=== PATIENT | male | born 1960 | race Caucasian/White ===

== ENCOUNTER 2017-08-22 20:11 | Emergency (ER) | payer OTHER ==
[~2017-08-22] VITALS: Ht 177.8 cm; Wt 101.4 kg
[2017-08-22] MEDS ORDERED: QUINAPRIL10 MG PO (20:26)
[2017-08-22] MEDS ORDERED: METFORMIN HCL1000 MG PO (20:26)
[2017-08-22] MEDS ORDERED: JARDIANCE10 MG PO (20:27)
[2017-08-22] MEDS ORDERED: JANUVIA25 MG PO (20:28)
[2017-08-22] MEDS ORDERED: CRESTOR20 MG PO (20:28)
[2017-08-22] MEDS ORDERED: ZETIA10 MG PO (20:29)
[2017-08-22] MEDS ORDERED: COREG CR80 MG PO (20:29)
[2017-08-22] MEDS ORDERED: ASPIRIN325 MG PO (20:30)
[2017-08-22] MEDS ORDERED: HYDROCHLOROT25 MG PO (20:30)
[2017-08-22] MEDS ORDERED: AUGMENTIN875TAB PO (20:55)
[2017-08-22 21:10] VITALS: BP 137/86
== END 2017-08-22 21:10 | disposition home or self-care (01) | DRG 603 ==
LOC: ED 20:11
DX: L03.116 Cellulitis of left lower limb (principal); M79.672 Pain in left foot

== ENCOUNTER 2018-02-19 07:37 | Emergency (ER) | payer BC ==
[~2018-02-19] VITALS: Ht 177.8 cm; Wt 97.7 kg
[~2018-02-19 07:37] MED LIST: ASPIRIN325 MG PO; AUGMENTIN875TAB PO; COREG CR80 MG PO; CRESTOR20 MG PO; HYDROCHLOROT25 MG PO; JANUVIA25 MG PO; JARDIANCE10 MG PO; METFORMIN HCL1000 MG PO; QUINAPRIL10 MG PO; ZETIA10 MG PO
[2018-02-19] MEDS ORDERED: ISOSORB MONO30 MG PO (08:12)
[2018-02-19] MEDS ORDERED: SOMA350 MG PO (08:13)
[2018-02-19] MEDS ORDERED: NITROSTAT0.4 MG SL (08:14)
[2018-02-19 08:23] LABS: IMMATURE GRANULOCYTES 0.3 % (0.0-5.0); MEAN CELL VOLUME 89.4 fL CALC (80.0-100.0); MEAN CORPUSCULAR HGB 30.4 pG CALC (26.0-32.0); NEUT# 3.37 thou/uL (1.82-7.42); RED BLOOD COUNT 5.59 mill/uL (4.70-6.10); RED CELL DISTRI WIDTH 12.7 % (11.5-15.5)
[2018-02-19 08:31] LABS: ANION GAP 14 (6-22 (CALC)); BUN 14 mg/dL (9-20); BUN/CREATININE RATIO 20 (12-20 (CALC)); CARBON DIOXIDE 23 mmol/l (22-30); CHLORIDE 109 mmol/l (95-108); CREATININE 0.7 mg/dL (0.7-1.3); GFR > 60 ML/MIN (>=60 (CALC)); GFR FOR AFR.AMER. > 60 ML/MIN (>=60 (CALC)); POTASSIUM 4.3 mmol/l (3.5-5.1); SODIUM 141 mmol/l (137-146)
[2018-02-19 09:17] VITALS: BP 151/88
[2018-02-19 09:19] LABS: ACT PARTIAL THROMBO TIME 27.1 SECONDS (20.0-32.5); INTERNATIONAL NORMALIZED RATIO 0.9 RATIO (0.7-1.3); PROTHROMBIN TIME 9.5 SECONDS (9.0-12.5)
== END 2018-02-19 09:23 | disposition short-term general hospital (02) | DRG 282 ==
LOC: ED 07:37
PROVIDERS: Family Medicine
DX: I21.3 ST elevation (STEMI) myocardial infarction of unspecified site (principal); I10 Essential (primary) hypertension; E11.9 Type 2 diabetes mellitus without complications; E78.00 Pure hypercholesterolemia, unspecified; Z95.1 Presence of aortocoronary bypass graft

== ENCOUNTER 2018-04-19 07:57 | Outpatient (RCR) | payer BC ==
[~2018-04-19 07:57] MED LIST changes: -ASPIRIN325 MG PO; +BRILINTA90 MG PO; +EC-81 ASPIRIN81 MG PO; +FISH OIL1000 MG PO; +ISOSORB MONO30 MG PO; +JANUVIA50 MG PO; +METFORMIN500 MG PO; +NITROSTAT0.4 MG SL; +SOMA350 MG PO
[2018-05-08] MEDS ORDERED: MULTI 50+ PO (09:36)
[2018-05-08] MEDS ORDERED: HYDROCHLOROT25 MG PO (09:37)
[2018-05-08] MEDS ORDERED: METOLAZONE2.5 MG PO (09:37)
== END 2018-04-19 09:05 | disposition home or self-care (01) | DRG 303 ==
LOC: CR 07:57
PROVIDERS: ATTEND Internal Medicine
DX: I25.119 Atherosclerotic heart disease of native coronary artery with unspecified angina pectoris (principal); Z95.818 Presence of other cardiac implants and grafts

== ENCOUNTER 2018-11-17 01:26 | Observation (INO) | payer BC ==
[~2018-11-17] VITALS: Ht 177.8 cm; Wt 93.0 kg
[~2018-11-17 01:26] MED LIST changes: +METOLAZONE2.5 MG PO; +MULTI 50+ PO
--- NOTE | 2018-11-17 01:28 | NUR ---
PT WHEELED STRAIGHT BACK TO ROOM 12 FOR TRIAGE, EKG DONE AND DR GARCIA IN ROOM.
[2018-11-17] MEDS ORDERED: LOVAZA1 CAP PO (01:58)
[2018-11-17] MEDS ORDERED: ISOSORB MONO30 MG PO (01:59)
[2018-11-17] MEDS ORDERED: FUROSEMIDE20 MG PO (01:59)
[2018-11-17 02:03] LABS: HEMATOCRIT 48.5 % (39.0-50.0); IMMATURE GRANULOCYTES 0.4 % (0.0-5.0); MEAN CELL VOLUME 86.5 fL CALC (80.0-100.0); MEAN CORPUSCULAR HGB 28.5 pG CALC (26.0-32.0); NEUT# 2.77 thou/uL (1.82-7.42); RED BLOOD COUNT 5.61 mill/uL (4.70-6.10); RED CELL DISTRI WIDTH 13.2 % (11.5-15.5)
--- NOTE | 2018-11-17 02:10 | NUR ---
B/P DROPPED TO 63/43 REMOVED NTG PASTE AND WIPED OFF CHEST. NS BOLUS INFUSING PER ORDER. PT STATES HE ONLY HAS 0.25/10 PAIN TO CHEST NOW.
[2018-11-17 02:14] LABS: ACT PARTIAL THROMBO TIME 25.5 SECONDS (20.0-32.5); INTERNATIONAL NORMALIZED RATIO 0.9 RATIO (0.7-1.3); PROTHROMBIN TIME 9.4 SECONDS (9.0-12.5)
[2018-11-17 02:19] LABS: ALBUMIN 4.7 g/dL (3.2-5.0); ALKALINE PHOSPHATASE 103 u/l (38-126); ANION GAP 18 (6-22 (CALC)); BILIRUBIN, TOTAL 1.4 mg/dL (0.0-1.4); BUN 18 mg/dL (9-20); BUN/CREATININE RATIO 23 (12-20 (CALC)); CARBON DIOXIDE 25 mmol/l (22-30); CHLORIDE 101 mmol/l (95-108); CREATININE 0.8 mg/dL (0.7-1.3); GFR > 60 ML/MIN (>=60 (CALC)); GFR FOR AFR.AMER. > 60 ML/MIN (>=60 (CALC)); POTASSIUM 4.1 mmol/l (3.5-5.1); SGOT/AST 36 u/l (17-59); SODIUM 140 mmol/l (137-146); TOTAL PROTEIN 7.6 g/dL (6.3-8.2)
--- NOTE | 2018-11-17 02:26 | NUR ---
B/P UP TO 105/60.
[2018-11-17 02:31] LABS: MYOGLOBIN 72 ng/mL (0 - 121)
--- NOTE | 2018-11-17 03:13 | NUR ---
GI COCKTAIL GIVEN FOR RETURN OF BURNING PAIN IN MID CHEST AREA. TOPONIN AND MYOGLOBIN NEGATIVE. CALL HOYT IN REACH. B/P STABLE
--- NOTE | 2018-11-17 04:00 | NUR ---
DR GARCIA SPOKE WITH DR MOISE AND ACCEPTED FOR ADMISSION.
--- NOTE | 2018-11-17 04:17 | NUR ---
Admission Note Report Given to: SKYLA WOMACK Transported by: X Wheelchair Stretcher Transported with: X Nurse Transporter X Patent IV X O2 X Fox Farmer
--- NOTE | 2018-11-17 04:22 | NUR ---
PT RECEIVED FROM [facility] ACCOMPANIED BY NURSE. GAIT IS STEADY. ALERT AND ORIENTED X4. TELE SR. VSS. B/P 115/79. O2 SAT 97% ON 2L N/C. LUNGS CLEAR BILAT. ABD SOFT AND NONDISTENDED WITH BOWEL SOUNDS PRESENT. PT DOES HAVE A +1 LOWER EXT EDEMA NOTED. PEDAL PULSES PALPATED BILAT. HEPLOCK PATENT IN RT A.C. NO REDNESS OR TENDERNESS AT SITE. PT ORIENTED TO ROOM AND CALL HOYT. PT INFORMED OF PLAN OF CARE. TELE SR. OFFERS NO COMPLAINTS AT THIS TIME. FREQUENT ROUNDS MADE.CALL HOYT WITHIN REACH.
[2018-11-17 04:40] VITALS: BP 115/79
[2018-11-17 05:41] LABS: CHOLESTEROL HDL RATIO 3.3 (<4.4 (CALC))
--- NOTE | 2018-11-17 05:55 | NUR ---
RESTING IN BED WITH EYES CLOSED. RESP EVEN AND UNLABORED. TELE INTACT. NO DISTRESS NOTED. FREQUENT ROUNDS MADE. CALL HOYT WITHIN REACH.
[2018-11-17 08:00] VITALS: BP 122/72
--- NOTE | 2018-11-17 08:00 | NUR ---
ASSESSMENT IS COMPLETED: IV SITE IS FREE FROM REDNESS OR EDEMA. HR IS REG,PULSES ARE STRONG X4, ABD IS SOFT WITH ACTIVE BS. BREATH SOUNDS ARE CLEAR,BILATERALLY, NO C/O CP OR SOB. TELE MONITOR IN PLACE. CONTINUE TO OSBERVE AND MONITOR.
[2018-11-17 11:13] VITALS: BP 129/83
--- NOTE | 2018-11-17 12:00 | NUR ---
PT HAS BEEN RELAXING IN BED WITH NO DISTRESS NOTED. IV SITE IS FREE FROM REDNESS OR EDEMA.
--- NOTE | 2018-11-17 13:00 | NUR ---
PT RECEIVED DISCHARGE INSTRUCTIONS . VERBALIZED UNDERSTANDING. IV SITE DISCONTINUED CATHETER INTACT NO REDNESS OR EDEMA. Discharge instructions given. Patient verbalizes understanding of same. Discharged in stable condition via Wheelchair to Home with family. All belongings sent with pt.
== END 2018-11-17 13:23 | disposition home or self-care (01) | DRG 303 ==
LOC: ED 01:26 → ED-I 02:40 → ED 04:05 → MS2 04:06
PROVIDERS: Family Medicine; ADMIT Internal Medicine; ATTEND Internal Medicine
DX: I25.119 Atherosclerotic heart disease of native coronary artery with unspecified angina pectoris (principal); I10 Essential (primary) hypertension; E11.9 Type 2 diabetes mellitus without complications; E78.5 Hyperlipidemia, unspecified; Z95.1 Presence of aortocoronary bypass graft; Z95.5 Presence of coronary angioplasty implant and graft; Z79.84 Long term (current) use of oral hypoglycemic drugs
CPT/HCPCS: G0378

== ENCOUNTER 2019-05-08 18:15 | Observation (INO) | payer BC ==
[~2019-05-08] VITALS: Ht 175.3 cm; Wt 90.7 kg
[~2019-05-08 18:15] MED LIST changes: +FUROSEMIDE20 MG PO; +LOVAZA1 CAP PO
--- NOTE | 2019-05-08 18:26 | NUR ---
PT ASSESSED. PT REPORTS CURRENTLY 4/10 CHEST PAIN. SUBSSTERNAL PAIN RADIATING LEFT ARM FOR THE LAST 25 MINUTES. PT REPORTS VERY ANXIOUS AND FEELING SHORT OF BREATH. HAS HAD OPEN HEART SURGERY 3 YEARS AGO. SKIN PINK, WARM AND DRY. PT AO X 3.
[2019-05-08 18:42] LABS: HEMATOCRIT 47.6 % (39.0-50.0); HEMOGLOBIN 16.1 g/dl (14.0-18.0); IMMATURE GRANULOCYTES 0.4 % (0.0-5.0); MEAN CELL VOLUME 86.9 fL CALC (80.0-100.0); MEAN CORPUSCULAR HGB 29.4 pG CALC (26.0-32.0); MEAN CORPUSCULAR HGB CONC 33.8 g/dL CAL (32.0-36.0); NEUT# 4.56 thou/uL (1.82-7.42); RED BLOOD COUNT 5.48 mill/uL (4.70-6.10); RED CELL DISTRI WIDTH 12.9 % (11.5-15.5)
--- NOTE | 2019-05-08 18:52 | NUR ---
PT MEDICATED FOR COMPLAINTS OF CHEST PAIN
[2019-05-08 18:58] LABS: ALKALINE PHOSPHATASE 87 u/l (38-126); ANION GAP 15 (6-22 (CALC)); BILIRUBIN, TOTAL 1.1 mg/dL (0.0-1.4); BUN 23 mg/dL (9-20); BUN/CREATININE RATIO 31 (12-20 (CALC)); CARBON DIOXIDE 24 mmol/l (22-30); CHLORIDE 101 mmol/l (95-108); CREATININE 0.7 mg/dL (0.7-1.3); GFR > 60 ML/MIN (>=60 (CALC)); GFR FOR AFR.AMER. > 60 ML/MIN (>=60 (CALC)); POTASSIUM 3.8 mmol/l (3.5-5.1); SGOT/AST 21 u/l (17-59); SODIUM 136 mmol/l (137-146); TOTAL PROTEIN 6.4 g/dL (6.3-8.2)
[2019-05-08 19:09] LABS: MYOGLOBIN 78 ng/mL (0 - 121)
--- NOTE | 2019-05-08 19:52 | NUR ---
PT REPORTS CHEST PAIN FREE AT THIS TIME. COMPLAINS OF SMALL ACHE IN LEFT JAW AND SHOULDER. RESTING COMFORTABLY ON STRETCHER. AT BEDSIDE.
--- NOTE | 2019-05-08 20:50 | NUR ---
ICU UNABLE TO TAKE REPORT AT THIS TIME
[2019-05-08] MEDS ORDERED: TRULICITY0.75 MG/0. IM (21:01)
--- NOTE | 2019-05-08 21:07 | NUR ---
REPORT CALLED TO EDNA CRUM.
--- NOTE | 2019-05-08 21:15 | NUR ---
PT TRANSPORTED VIA STRETCHER TO ICU. MONITOR IN PLACE
[2019-05-08 21:20] VITALS: BP 133/77
--- NOTE | 2019-05-08 21:20 | NUR ---
RECEIVED FROM ER VIA STRETCHER INTO ICU BED 8. PATIENT ALERT AND ORIENTED. PAINFREE ON ARRIVAL TO UNIT. PATIENT AMBULATES WITH STABLE STANCE AND GAIT FROM STRETCHER TO BED. ORIENTED TO SURROUNDINGS. RESP NON-LABORED. LUNGS CLEAR THROUGHOUT. NO PERIPHERAL EDEMA, PULSES PALPABLE. SALINE LOCK INTACT IN RH, SITE BENIGN. PLACED ON ELECTROLESS PLATER SHOWING SR. DISCUSSED PLAN OF CARE. DENIES NEEDS AT THIS TIME. CALL HOYT IN REACH.
[2019-05-08] MEDS ORDERED: CARVEDILOL25 MG PO (21:55)
[2019-05-08] MEDS ORDERED: QUINAPRIL20 MG PO (22:00)
--- NOTE | 2019-05-08 22:00 | NUR ---
SPOKE ON PHONE WITH PATIENT GABRIELA AND UPDATED MED REC. PATIENT PROVIDED WITH SANDWICH, FRUIT AND PUDDING AND DIET SODA.
[2019-05-08 22:15] VITALS: BP 127/74
[2019-05-08 23:12] LABS: URINE BILIRUBIN - DIPSTICK NEGATIVE (NEGATIVE); URINE BLOOD DIPSTICK NEGATIVE (NEGATIVE); URINE COLOR YELLOW; URINE GLUCOSE - DIPSTICK >=1000 mg/dL (NEGATIVE); URINE KETONE NEGATIVE (NEGATIVE); URINE LEUK ESTERASE NEGATIVE (NEGATIVE); URINE NITRITE - DIPSTICK NEGATIVE (Negative); URINE PH 5.5 (4.5-8.0); URINE PROTEIN - DIPSTICK NEGATIVE (NEG-TRACE); URINE UROBILINOGEN - DIPSTICK 0.2 E.U./dL (0.2)
[2019-05-09] VITALS (7 sets, daily range): BP systolic 101–141; BP diastolic 60–87
--- NOTE | 2019-05-09 00:15 | NUR ---
PRIVATE [employer]ORTGAGE BANKER SAFE HERE TO DRAW BLOOD FOR TROPONIN LEVEL. PATIENT RESTING WITHOUT COMPLAINTS. VSS. MONITOR SR.
--- NOTE | 2019-05-09 04:00 | NUR ---
RESTING WITH EYES CLOSED. RESP NON-LABORED. SR ON MONITOR.
--- NOTE | 2019-05-09 06:00 | NUR ---
RESTING IN BED WITHOUT COMPLAINTS. VSS. SR ON MONITOR. TEOFILO CASTELLANOS FLUSHED AND PATENT.
--- NOTE | 2019-05-09 07:00 | NUR ---
PT RESTINGIN BED AWAKE. PT IS ALERT AND ORIENTED X3. SHIFT ASSESSMENT COMPLETED AT THIS TIME. IV PATENT X1. CALL LIGHT IN REACH. WILL CONTINUE TO MONITOR.
--- NOTE | 2019-05-09 07:50 | NUR ---
PT SET UP FOR AM MEAL
--- NOTE | 2019-05-09 07:55 | NUR ---
DR FRAZIER AT BEDSIDE AT THIS TIME
--- NOTE | 2019-05-09 08:12 | NUR ---
LILLIAN ALFORD APRN NOTIFIED OF CONSULT. DR FRAZIER SPOKE WITH DR HILTON.
--- NOTE | 2019-05-09 10:15 | NUR ---
PT REPORTS THAT HE TOOK BRILINTA FROM HOME BROUGHT IN MEDICATION. PT DOES NOT WANT TO SEND MEDICATION TO PHARMACY DUE TO HE MAY BE DC'D TODAY.EXPLAINED TO PATIENT THAT IF HE STAYS THE MEDICATION WILL NEED TO BE VERIFIED BY PHARACY. PT VERBALIZED UNDERSTANDIN. PT ALSO STATES THAT HE HAS HAD TWO EPISODES OF CHEST TIGHTNESS SINCE 0800 NOT LIKE LAST NIGHT PER PATIENT. TERESA ALFORD APRN NOTIFIED AND DR FRAZIER NOTIFIED WELL.
--- NOTE | 2019-05-09 10:29 | NUR ---
TERESA ALFORD AT BEDSIDE AT THIS TIME
--- NOTE | 2019-05-09 11:14 | NUR ---
RT AT BEDSIDE FOR EKG
--- NOTE | 2019-05-09 11:40 | NUR ---
PT SET UP FOR NOON MEAL
--- NOTE | 2019-05-09 12:12 | NUR ---
LAB AT BEDSIDE AT THIS TIME.
[2019-05-09] MEDS ORDERED: RANOLAZINE ER500 MG PO (12:48)
--- NOTE | 2019-05-09 13:30 | NUR ---
PT TRANSFERRED TO MED SURG ROOM 290 VIA WHEELCHAIR. PT TOLERATED.
--- NOTE | 2019-05-09 13:40 | NUR ---
PATIENT TRANSFERRED FROM ICU, ADRIÁNRWADE A/OX4, NO C/O PAIN, NO CHEST PAIN, PATIENT ABLE TO AMBULATE TO RESTROOM, PATIENT SITTING UP IN CHAIR, ORIENT TO ROOM, STAFF, PLAN OF CARE, CALL LIGHTIN WITHIN REACH
--- NOTE | 2019-05-09 16:33 | NUR ---
PATIENT A/OX4, NO C/O PAIN, NO C/O CHEST PAIN, NO S/S RESP DISTRESS, PATIENT RHYTHM IN NORMAL SINUS RHYTHM, CALL LIGHT WITHIN REACH
--- NOTE | 2019-05-09 19:54 | NUR ---
PT SITTING IN RECLINER AT BEDSIDE, NO SIGNS OF DISTRESS NOTED, RESP EVEN AND UNLABORED. PT ALERT AND ORIENTED X3, AT BEDSIDE, DISCUSSED POC. DENIES CP AT THIS TIME STATES HE DID HAVE CP EARLIER BUT IT WAS NON RADIATING AND LASTED FOR JUST A MOMENT. ASSESSMENT COMPLETED, MEDICATED PER MAR. CALL LIGHT IN REACH,CONTINUE TO MONITOR.
--- NOTE | 2019-05-09 20:39 | NUR ---
PT MEDICATED WITH 2 UNTIS OF NOVOLOG FOR ACCUCHECK 242. CALL LIGHT IN REACH,CONTINUE TO MONITOR.
--- NOTE | 2019-05-10 | NUR ---
PT RESTING IN BED WITH EYES CLOSED, NO SIGNS OF DISTRESS NOTED, RESP EVEN AND UNLABORED. CALL LIGHT IN REACH,CONTINUE TO MONITOR.
[2019-05-10 03:28] VITALS: BP 91/57
--- NOTE | 2019-05-10 03:30 | NUR ---
VITALS OBTAINED BY STAMPER BLOCKER, PT VOICES NO NEEDS OR COMPLAINTS, CALL LIGHT IN REACH,CONTINUE TO MONITOR.
--- NOTE | 2019-05-10 06:00 | NUR ---
PT RESTING IN BED WITH EYES CLOSED, NO SIGNS OF DISTRESS NOTED, RESP EVEN AND UNLABORED, CALL LIGHT IN REACH,CONTINUE TO MONITOR.
--- NOTE | 2019-05-10 07:45 | NUR ---
PATIENT A/OX4, NO C/O PAIN, NO S/S RESP DISTRESS, PATIENT ON ROOM AIR, PATIENT SITTING UP IN CHAIR, PATIENT HEART RHYTHM NORMAL SINUS, WILL CONTINUE TO MONITOR PATIENT, CALL LIGHT WITHIN REACH
[2019-05-10 08:00] VITALS: BP 123/84
[2019-05-10 10:55] VITALS: BP 114/85
--- NOTE | 2019-05-10 11:10 | NUR ---
PATIENT A/OX4, PATIENT HAS NO C/O PAIN NO CHEST PAIN, PATIENT NO S/S RESP DISTRESS, PATIENT ON ROOM, PATIENT DISCHARGED TO HOME SELF, EDUCATED THE PATIENT DISCHARGED INSTRUCTIONS PATIENT UNDERSTOOD TEACHING, PATIENT GIVEN HANDOUTS ABOUT DISCHARGED INSTRUCTIONS, REMOVED PATIENT IV, STAFF ASSISTED PATIENT OFF FLOOR VIA WHEELCHAIR
== END 2019-05-10 11:12 | disposition home or self-care (01) | DRG 303 ==
LOC: ED 18:15 → ED-I 19:32 → ED 19:51 → ICU 19:52 → ED-I 19:52 → ICU 20:14 → MS2 05-09 13:30
PROVIDERS: Emergency Medicine; ADMIT Internal Medicine; ATTEND Internal Medicine
DX: I25.118 Atherosclerotic heart disease of native coronary artery with other forms of angina pectoris (principal); I10 Essential (primary) hypertension; E11.9 Type 2 diabetes mellitus without complications; E78.5 Hyperlipidemia, unspecified; I25.2 Old myocardial infarction; Z95.1 Presence of aortocoronary bypass graft; Z95.5 Presence of coronary angioplasty implant and graft; Z79.84 Long term (current) use of oral hypoglycemic drugs; Z79.02 Long term (current) use of antithrombotics/antiplatelets; Z79.82 Long term (current) use of aspirin; Z82.49 Family history of ischemic heart disease and other diseases of the circulatory system
CPT/HCPCS: G0378; J1650

== ENCOUNTER 2019-06-10 | Emergency (ER) | payer BC ==
[~2019-06-10] MED LIST changes: +CARVEDILOL25 MG PO; +QUINAPRIL20 MG PO; +RANOLAZINE ER500 MG PO; +TRULICITY0.75 MG/0. IM
[2019-06-10 22:22] LABS: HEMATOCRIT 47.8 % (39.0-50.0); IMMATURE GRANULOCYTES 0.3 % (0.0-5.0); MEAN CELL VOLUME 87.5 fL CALC (80.0-100.0); MEAN CORPUSCULAR HGB 29.3 pG CALC (26.0-32.0); MEAN CORPUSCULAR HGB CONC 33.5 g/dL CAL (32.0-36.0); NEUT# 4.35 thou/uL (1.82-7.42); RED BLOOD COUNT 5.46 mill/uL (4.70-6.10); RED CELL DISTRI WIDTH 13.2 % (11.5-15.5)
[2019-06-10 22:23] LABS: GFR > 60 ML/MIN (>=60 (CALC)); GFR FOR AFR.AMER. > 60 ML/MIN (>=60 (CALC))
[2019-06-10] MEDS ORDERED: EZETIMIBE10 MG PO (22:26)
[2019-06-10] MEDS ORDERED: VASCEPA1 GM PO (22:27)
[2019-06-10] MEDS ORDERED: VITAMIN D35000 UNIT PO (22:28)
[2019-06-10 22:38] LABS: ALBUMIN 4.3 g/dL (3.2-5.0); ALKALINE PHOSPHATASE 101 u/l (38-126); AMYLASE 96 u/l (30-110); ANION GAP 13 (6-22 (CALC)); BILIRUBIN, TOTAL 1.4 mg/dL (0.0-1.4); BUN 23 mg/dL (9-20); BUN/CREATININE RATIO 24 (12-20 (CALC)); CARBON DIOXIDE 26 mmol/l (22-30); CHLORIDE 101 mmol/l (95-108); GFR > 60 ML/MIN (>=60 (CALC)); GFR FOR AFR.AMER. > 60 ML/MIN (>=60 (CALC)); LIPASE 399 u/l (23-300); SODIUM 136 mmol/l (137-146); TOTAL PROTEIN 6.9 g/dL (6.3-8.2)
[2019-06-10 22:40] LABS: INTERNATIONAL NORMALIZED RATIO 0.9 RATIO (0.7-1.3); PROTHROMBIN TIME 9.5 SECONDS (9.0-12.5)
[2019-06-10 22:42] LABS: SGOT/AST 42 u/l (17-59)
== END 2019-06-11 00:36 | disposition short-term general hospital (02) | DRG 303 ==
DX: I25.110 Atherosclerotic heart disease of native coronary artery with unstable angina pectoris (principal); E11.9 Type 2 diabetes mellitus without complications; I10 Essential (primary) hypertension; Z95.1 Presence of aortocoronary bypass graft; Z95.5 Presence of coronary angioplasty implant and graft; Z79.84 Long term (current) use of oral hypoglycemic drugs
CPT/HCPCS: Q9967

== ENCOUNTER 2019-11-26 11:14 | Emergency (ER) | payer BC ==
[~2019-11-26] VITALS: Ht 175.3 cm; Wt 75.0 kg
[~2019-11-26 11:14] MED LIST changes: +EZETIMIBE10 MG PO; +VASCEPA1 GM PO; +VITAMIN D35000 UNIT PO
[2019-11-26 12:39] LABS: HEMATOCRIT 47.9 % (39.0-50.0); HEMOGLOBIN 15.8 g/dl (14.0-18.0); IMMATURE GRANULOCYTES 0.2 % (0.0-5.0); MEAN CELL VOLUME 89.7 fL CALC (80.0-100.0); MEAN CORPUSCULAR HGB 29.6 pG CALC (26.0-32.0); NEUT# 3.08 thou/uL (1.82-7.42); RED BLOOD COUNT 5.34 mill/uL (4.70-6.10); RED CELL DISTRI WIDTH 12.5 % (11.5-15.5)
[2019-11-26 12:53] LABS: ALBUMIN 3.9 g/dL (3.2-5.0); ALKALINE PHOSPHATASE 71 u/l (38-126); ANION GAP 12 (6-22 (CALC)); BILIRUBIN, TOTAL 1.4 mg/dL (0.0-1.4); BUN 17 mg/dL (9-20); BUN/CREATININE RATIO 21 (12-20 (CALC)); CARBON DIOXIDE 25 mmol/l (22-30); CHLORIDE 103 mmol/l (95-108); CREATININE 0.8 mg/dL (0.7-1.3); GFR > 60 ML/MIN (>=60 (CALC)); GFR FOR AFR.AMER. > 60 ML/MIN (>=60 (CALC)); POTASSIUM 4.3 mmol/l (3.5-5.1); SGOT/AST 42 u/l (17-59); SODIUM 136 mmol/l (137-146); TOTAL PROTEIN 6.5 g/dL (6.3-8.2)
[2019-11-26] MEDS ORDERED: VITAMIN C500 MG PO (15:50)
[2019-11-26] MEDS ORDERED: CYANOCOBALAM IM (15:52)
[2019-11-26 17:27] VITALS: BP 126/86
== END 2019-11-26 17:20 | DRG 552 ==
LOC: ED 11:14
PROVIDERS: Family Medicine
DX: S22.080A Wedge compression fracture of T11-T12 vertebra, initial encounter for closed fracture (principal); R20.2 Paresthesia of skin; R15.2 Fecal urgency; R32 Unspecified urinary incontinence; I10 Essential (primary) hypertension; E11.9 Type 2 diabetes mellitus without complications; W01.0XXA Fall on same level from slipping, tripping and stumbling without subsequent striking against object, initial encounter; Y92.009 Unspecified place in unspecified non-institutional (private) residence as the place of occurrence of the external cause; Z95.1 Presence of aortocoronary bypass graft; Z98.1 Arthrodesis status; Z95.5 Presence of coronary angioplasty implant and graft; Z79.84 Long term (current) use of oral hypoglycemic drugs
CPT/HCPCS: J2060

== ENCOUNTER 2020-04-24 10:32 | Observation (INO) | payer BC ==
[~2020-04-24] VITALS: Ht 175.3 cm; Wt 91.6 kg
[~2020-04-24 10:32] MED LIST changes: +CYANOCOBALAM IM; +VITAMIN C500 MG PO
[2020-04-24 11:18] LABS: HEMATOCRIT 49.4 % (39.0-50.0); IMMATURE GRANULOCYTES 0.3 % (0.0-5.0); MEAN CELL VOLUME 91.3 fL CALC (80.0-100.0); MEAN CORPUSCULAR HGB 29.6 pG CALC (26.0-32.0); MEAN CORPUSCULAR HGB CONC 32.4 g/dL CAL (32.0-36.0); NEUT# 3.83 thou/uL (1.82-7.42); RED BLOOD COUNT 5.41 mill/uL (4.70-6.10)
[2020-04-24 11:35] LABS: ALBUMIN 4.4 g/dL (3.2-5.0); ALKALINE PHOSPHATASE 80 u/l (38-126); ANION GAP 14 (6-22 (CALC)); BUN 16 mg/dL (9-20); BUN/CREATININE RATIO 19 (12-20 (CALC)); CARBON DIOXIDE 27 mmol/l (22-30); CHLORIDE 101 mmol/l (95-108); CREATININE 0.9 mg/dL (0.7-1.3); GFR > 60 ML/MIN (>=60 (CALC)); GFR FOR AFR.AMER. > 60 ML/MIN (>=60 (CALC)); POTASSIUM 4.4 mmol/l (3.5-5.1); SGOT/AST 31 u/l (17-59); SODIUM 138 mmol/l (137-146); TOTAL PROTEIN 6.7 g/dL (6.3-8.2)
[2020-04-24 11:44] LABS: MYOGLOBIN 49 ng/mL (0 - 121)
[2020-04-24 11:48] LABS: BILIRUBIN, TOTAL 1.2 mg/dL (0.0-1.4)
[2020-04-24 13:51] VITALS: BP 119/80
[2020-04-24 15:00] VITALS: BP 113/71
[2020-04-24 19:08] VITALS: BP 135/80
[2020-04-25] VITALS: BP 110/68
[2020-04-25 04:37] VITALS: BP 120/73
[2020-04-25 06:54] LABS: HEMATOCRIT 44.3 % (39.0-50.0); HEMOGLOBIN 14.5 g/dl (14.0-18.0); IMMATURE GRANULOCYTES 0.4 % (0.0-5.0); MEAN CELL VOLUME 89.9 fL CALC (80.0-100.0); MEAN CORPUSCULAR HGB 29.4 pG CALC (26.0-32.0); MEAN CORPUSCULAR HGB CONC 32.7 g/dL CAL (32.0-36.0); NEUT# 2.55 thou/uL (1.82-7.42); RED BLOOD COUNT 4.93 mill/uL (4.70-6.10); RED CELL DISTRI WIDTH 12.7 % (11.5-15.5)
[2020-04-25 07:09] LABS: ALBUMIN 3.7 g/dL (3.2-5.0); ALKALINE PHOSPHATASE 66 u/l (38-126); ANION GAP 13 (6-22 (CALC)); BUN 16 mg/dL (9-20); BUN/CREATININE RATIO 20 (12-20 (CALC)); CALCULATED LDLCHOLESTEROL 39 mg/dL (62-129 (CALC)); CARBON DIOXIDE 24 mmol/l (22-30); CHLORIDE 103 mmol/l (95-108); CHOLESTEROL HDL RATIO 2.8 (<4.4 (CALC)); CREATININE 0.8 mg/dL (0.7-1.3); GFR > 60 ML/MIN (>=60 (CALC)); GFR FOR AFR.AMER. > 60 ML/MIN (>=60 (CALC)); HDL CHOLESTEROL 36 mg/dL (>=40); MAGNESIUM 1.6 mg/dL (1.6-2.3); POTASSIUM 4.2 mmol/l (3.5-5.1); SGOT/AST 23 u/l (17-59); SODIUM 136 mmol/l (137-146); TOTAL CHOLESTEROL 101 mg/dl (0-199); TOTAL PROTEIN 5.8 g/dL (6.3-8.2); TOTAL TRIGLYCERIDES 131 mg/dl (30-149); VLDL CHOLESTROL 26 mg/dl (4-45 (CALC))
[2020-04-25 08:08] VITALS: BP 134/87
[2020-04-25 10:30] VITALS: BP 128/79
== END 2020-04-25 13:05 | disposition home or self-care (01) | DRG 303 ==
LOC: ED 10:32 → ED-I 12:17 → ED 12:32 → MS2 12:33
PROVIDERS: Emergency Medicine; Nurse Practitioner; ADMIT Internal Medicine; ATTEND Internal Medicine
DX: I25.118 Atherosclerotic heart disease of native coronary artery with other forms of angina pectoris (principal); I10 Essential (primary) hypertension; E11.9 Type 2 diabetes mellitus without complications; E78.5 Hyperlipidemia, unspecified; I25.2 Old myocardial infarction; Z82.49 Family history of ischemic heart disease and other diseases of the circulatory system; Z79.4 Long term (current) use of insulin; Z95.1 Presence of aortocoronary bypass graft; Z95.5 Presence of coronary angioplasty implant and graft; Z20.822 Contact with and (suspected) exposure to COVID-19
CPT/HCPCS: G0378

== ENCOUNTER 2021-03-05 18:23 | Emergency (ER) | payer BC ==
[~2021-03-05] VITALS: Ht 175.3 cm; Wt 79.0 kg
[2021-03-05 21:14] LABS: HEMATOCRIT 48.5 % (39.0-50.0); IMMATURE GRANULOCYTES 0.2 % (0.0-5.0); MEAN CELL VOLUME 88.8 fL CALC (80.0-100.0); MEAN CORPUSCULAR HGB 29.3 pG CALC (26.0-32.0); NEUT# 3.07 thou/uL (1.82-7.42); RED BLOOD COUNT 5.46 mill/uL (4.70-6.10); RED CELL DISTRI WIDTH 13.1 % (11.5-15.5)
[2021-03-05 21:24] LABS: ALBUMIN 3.4 g/dL (3.2-5.0); ALKALINE PHOSPHATASE 80 u/l (38-126); AMYLASE 48 u/l (30-110); ANION GAP 13 (6-22 (CALC)); BUN 14 mg/dL (9-20); BUN/CREATININE RATIO 15 (12-20 (CALC)); CARBON DIOXIDE 23 mmol/l (22-30); CHLORIDE 100 mmol/l (95-108); CREATININE 0.9 mg/dL (0.7-1.3); GFR > 60 ML/MIN (>=60 (CALC)); GFR FOR AFR.AMER. > 60 ML/MIN (>=60 (CALC)); LIPASE 159 u/l (23-300); POTASSIUM 4.7 mmol/l (3.5-5.1); SODIUM 131 mmol/l (137-146); TOTAL PROTEIN 6.1 g/dL (6.3-8.2)
[2021-03-05 21:29] LABS: BILIRUBIN, TOTAL 2.1 mg/dL (0.0-1.4); SGOT/AST 104 u/l (17-59)
[2021-03-05 22:46] LABS: URINE BILIRUBIN - DIPSTICK NEGATIVE (NEGATIVE); URINE BLOOD DIPSTICK NEGATIVE (NEGATIVE); URINE COLOR YELLOW; URINE GLUCOSE - DIPSTICK >=1000 mg/dL (NEGATIVE); URINE KETONE 40 mg/dL (NEGATIVE); URINE LEUK ESTERASE NEGATIVE (NEGATIVE); URINE NITRITE - DIPSTICK NEGATIVE (Negative); URINE PROTEIN - DIPSTICK NEGATIVE (NEG-TRACE); URINE SPECIFIC GRAVITY >=1.030; URINE UROBILINOGEN - DIPSTICK 0.2 E.U./dL (0.2)
[2021-03-05] MEDS ORDERED: PROMETHAZINE HY25 M1 PO (23:42)
[2021-03-05] MEDS ORDERED: VIBRAMYCIN100 M2 PO (23:42)
[2021-03-05 23:55] VITALS: BP 92/52
== END 2021-03-05 23:40 | disposition home or self-care (01) | DRG 603 ==
LOC: ED 18:23
PROVIDERS: Family Medicine
DX: L03.311 Cellulitis of abdominal wall (principal); A08.4 Viral intestinal infection, unspecified; R74.8 Abnormal levels of other serum enzymes; I10 Essential (primary) hypertension; E11.9 Type 2 diabetes mellitus without complications; E78.00 Pure hypercholesterolemia, unspecified; I25.2 Old myocardial infarction; Z95.1 Presence of aortocoronary bypass graft; Z95.5 Presence of coronary angioplasty implant and graft; Z79.84 Long term (current) use of oral hypoglycemic drugs; Z20.822 Contact with and (suspected) exposure to COVID-19
CPT/HCPCS: Q9967

== ENCOUNTER 2021-08-26 17:42 | Emergency (ER) | payer BC ==
[~2021-08-26] VITALS: Ht 175.3 cm; Wt 87.0 kg
[~2021-08-26 17:42] MED LIST changes: +PROMETHAZINE HY25 M1 PO; +VIBRAMYCIN100 M2 PO
[2021-08-26 18:16] LABS: HEMATOCRIT 50.2 % (39.0-50.0); HEMOGLOBIN 16.3 g/dl (14.0-18.0); IMMATURE GRANULOCYTES 0.2 % (0.0-5.0); MEAN CELL VOLUME 91.3 fL CALC (80.0-100.0); MEAN CORPUSCULAR HGB 29.6 pG CALC (26.0-32.0); MEAN CORPUSCULAR HGB CONC 32.5 g/dL CAL (32.0-36.0); NEUT# 2.46 thou/uL (1.82-7.42); RED BLOOD COUNT 5.5 mill/uL (4.70-6.10); RED CELL DISTRI WIDTH 13.7 % (11.5-15.5)
[2021-08-26 18:36] LABS: ALKALINE PHOSPHATASE 77 u/l (38-126); BUN 13 mg/dL (8-23); BUN/CREATININE RATIO 16 (12-20 (CALC)); CARBON DIOXIDE 25 mmol/l (22-30); CHLORIDE 107 mmol/l (95-108); CREATININE 0.8 mg/dL (0.7-1.3); GFR FOR AFR.AMER. > 60 ML/MIN (>=60 (CALC)); GFR OTHER RACES > 60 ML/MIN (>=60 (CALC)); POTASSIUM 3.9 mmol/l (3.5-5.1); SGOT/AST 37 u/l (19-48); TOTAL PROTEIN 6.7 g/dL (6.3-8.2)
[2021-08-26 18:46] LABS: ALBUMIN 4.1 g/dL (3.2-5.0); ANION GAP 12 (6-22 (CALC)); BILIRUBIN, TOTAL 0.9 mg/dL (0.0-1.4); SODIUM 140 mmol/l (137-146)
[2021-08-26 21:38] VITALS: BP 129/85
== END 2021-08-26 21:42 | disposition short-term general hospital (02) | DRG 311 ==
LOC: ED 17:42
PROVIDERS: Family Medicine
DX: I20.0 Unstable angina (principal); I10 Essential (primary) hypertension; E11.9 Type 2 diabetes mellitus without complications; E78.5 Hyperlipidemia, unspecified; I25.2 Old myocardial infarction; Z95.1 Presence of aortocoronary bypass graft; Z95.5 Presence of coronary angioplasty implant and graft; Z79.84 Long term (current) use of oral hypoglycemic drugs
CPT/HCPCS: J1650

== ENCOUNTER → 2021-09-04 | Emergency (ER) | payer BC ==
[2021-09-04 12:24] VITALS: BP 151/106
[2021-09-04 12:45] VITALS: BP 129/88
[2021-09-04 12:51] LABS: ALBUMIN 4.1 g/dL (3.2-5.0); ALKALINE PHOSPHATASE 62 u/l (38-126); ANION GAP 10 (6-22 (CALC)); BILIRUBIN, TOTAL 1.3 mg/dL (0.0-1.4); BUN 17 mg/dL (8-23); BUN/CREATININE RATIO 19 (12-20 (CALC)); CARBON DIOXIDE 27 mmol/l (22-30); CHLORIDE 105 mmol/l (95-108); CREATININE 0.9 mg/dL (0.7-1.3); GFR FOR AFR.AMER. > 60 ML/MIN (>=60 (CALC)); GFR OTHER RACES > 60 ML/MIN (>=60 (CALC)); POTASSIUM 4.4 mmol/l (3.5-5.1); SGOT/AST 29 u/l (19-48); SODIUM 138 mmol/l (137-146); TOTAL PROTEIN 6.7 g/dL (6.3-8.2)
[2021-09-04 12:58] LABS: HEMATOCRIT 45.4 % (39.0-50.0); HEMOGLOBIN 15.2 g/dl (14.0-18.0); IMMATURE GRANULOCYTES 0.2 % (0.0-5.0); MEAN CELL VOLUME 88.2 fL CALC (80.0-100.0); MEAN CORPUSCULAR HGB 29.5 pG CALC (26.0-32.0); MEAN CORPUSCULAR HGB CONC 33.5 g/dL CAL (32.0-36.0); NEUT# 2.85 thou/uL (1.82-7.42); RED BLOOD COUNT 5.15 mill/uL (4.70-6.10); RED CELL DISTRI WIDTH 13.4 % (11.5-15.5)
[2021-09-04 13:18] VITALS: BP 129/92
[2021-09-04 13:30] VITALS: BP 127/88
[2021-09-04 13:45] VITALS: BP 116/94
[2021-09-04 13:59] VITALS: BP 116/94
== END | disposition home or self-care (01) | DRG 921 ==
LOC: ED 11:25
PROVIDERS: Nurse Practitioner
DX: L76.32 Postprocedural hematoma of skin and subcutaneous tissue following other procedure (principal); I10 Essential (primary) hypertension; E11.9 Type 2 diabetes mellitus without complications; E78.00 Pure hypercholesterolemia, unspecified; I25.2 Old myocardial infarction; Y84.0 Cardiac catheterization as the cause of abnormal reaction of the patient, or of later complication, without mention of misadventure at the time of the procedure; Z95.5 Presence of coronary angioplasty implant and graft; Z95.1 Presence of aortocoronary bypass graft; Z79.84 Long term (current) use of oral hypoglycemic drugs